=== PATIENT | male | born 1955 ===

== ENCOUNTER 2024-05-23 12:36 | Outpatient (REF) | payer MEDICARE, SELFPAY ==
[2024-05-23 14:48] LABS: ESR 6 mm/hr (0-20)
[2024-05-23 15:05] LABS: Anion Gap 7.3 mmol/L (3-11); BUN 13 mg/dL (7-18); CO2 26.7 mmol/L (21.0-32.0); CREATININE 0.9 mg/dL (0.70-1.30); Chloride 107 mmol/L (98-107); Estimated GFR 93.03 (mL/min/1.73m2); Glucose 96 mg/dL (74-106); Potassium 4.3 mmol/L (3.5-5.1); Sodium 141 mmol/L (136-145)
[2024-05-23 15:06] LABS: C-Reactive Protein < 0.50 mg/dL (<or=0.5)
== END 2024-05-23 12:37 | disposition home or self-care (01) ==
LOC: NCHCN 12:36
PROVIDERS: Visit Provider Family Medicine
DX: M35.3 Polymyalgia rheumatica (principal); Z12.5 Encounter for screening for malignant neoplasm of prostate
CPT/HCPCS: 80048; 84153; 85652; 86140

== ENCOUNTER 2025-08-06 15:37 | Outpatient (REF) | payer MEDICARE, SELFPAY ==
[2025-08-06 15:42] LABS: Abs Immature Grans 0.05 10^3/uL (0.0-0.06); HCT 38.5 % (40.0-50.0); HGB 12.4 g/dL (13.5-17.5); MCH 29.4 pg (27.0-33.0); MCHC 32.2 % (32.0-36.0); MCV 91 fL (80-95); MPV 10.2 fL (8.0-11.0); Platelet Count 524 10^3/uL (130-400); RBC 4.22 10^6/uL (4.36-5.78); RDW 13.1 % (11.8-14.1); RDW-SD 43.7 fL; WBC 14.61 10^3/uL (4.4-10.8)
[2025-08-06 15:54] LABS: ESR 41 mm/hr (0-20)
[2025-08-06 16:21] LABS: Immature Grans % 0.0 %
[2025-08-06 16:22] LABS: RBC Morphology Normal
[2025-08-06 16:36] LABS: ALT 17 U/L (16-63); AST 19 U/L (15-37); Albumin 3.3 g/dL (3.4-5.0); Alkaline Phosphatase 81 U/L (46-116); Anion Gap 9.1 mmol/L (3-11); BUN 21 mg/dL (7-18); Bilirubin, Total 0.3 mg/dL (0.2-1.0); C-Reactive Protein 6.60 mg/dL (<or=0.5); CO2 26.9 mmol/L (21.0-32.0); Calcium 10.1 mg/dL (8.5-10.1); Chloride 102 mmol/L (98-107); Estimated GFR 81.47 (mL/min/1.73m2); Glucose 93 mg/dL (74-106); Potassium 4.6 mmol/L (3.5-5.1); Sodium 138 mmol/L (136-145); Total Protein 7.2 g/dL (6.4-8.2)
== END 2025-08-06 15:38 | disposition home or self-care (01) ==
LOC: NCHCN 15:37
PROVIDERS: Visit Provider Family Medicine
DX: R59.1 Generalized enlarged lymph nodes (principal); M13.0 Polyarthritis, unspecified
CPT/HCPCS: 80053; 85652; 85025; 86140

== ENCOUNTER 2025-08-14 17:16 | Outpatient (REF) | payer MEDICARE, SELFPAY ==
[2025-08-14 15:12] LABS: ESR 16 mm/hr (0-20)
[2025-08-14 15:16] LABS: C-Reactive Protein 1.08 mg/dL (<or=0.5)
== END 2025-08-14 17:17 | disposition home or self-care (01) ==
LOC: NCHCN 17:16
PROVIDERS: Visit Provider Family Medicine
DX: M35.3 Polymyalgia rheumatica (principal)
CPT/HCPCS: 85652; 86140